=== PATIENT | male | born 1975 | race African-American/Black ===

== ENCOUNTER 2020-02-22 18:06 | Inpatient (IN) ==
[2020-02-22 18:25] LABS: Basophils # 0.1 10*3/uL (0.0-0.2); Basophils % 0.9 % (0.0-0.8); Eosinophils # 0.4 10*3/uL (0.0-0.87); Eosinophils % 3.5 % (0.00-10.9); Hematocrit 41.5 VOL% (42.0-52.0); Hemoglobin 14.3 GM/DL (14.0-18.0); Immature Granulocytes % 0.3 %; Immature Granulocytes Absolute 0.03 #; Lymphocytes % 29.5 % (21.2-54.2); Mean Corpuscular HGB Conc 34.5 GM/DL (32-36); Mean Corpuscular Volume 87.6 FL (87-102); Mean Platelet Volume 9.6 FL (9.6-12.0); Monocytes % 6.8 % (1.7-12.7); Platelet Count 338 T/CUMM (130-400); Red Blood Count 4.74 MC/CUMM (3.8-5.5); Red Cell Distribution Width 13.6 % (9.3-17.3); White Blood Count 10.1 T/CUMM (4-12)
[2020-02-22 18:51] LABS: Alanine Aminotransferase 21 U/L (16-61); Albumin 3.9 G/DL (3.4-5.0); Alkaline Phosphatase 99 U/L (45-117); Aspartate Amino Transferase 21 U/L (0-37); Bilirubin,Total < 0.39 MG/DL (0.2-1.0); Blood Urea Nitrogen 14 MG/DL (7-18); Calcium 9.9 MG/DL (8.5-10.1); Estimated Glom Filtration Rate 108 ML/MIN; Glucose 108 MG/DL (74-106); Osmolality,Calculated 280.4 MOS/KG (273-304); Total Protein 7.6 G/DL (6.4-8.3)
[2020-02-22] MEDS ORDERED: DEXTROSE 50% 25 GM/50 ML VIAL IV PRN (19:42)
[2020-02-22] MEDS ORDERED: GLUCAGON 1 MG VIAL IM PRN (19:42)
[2020-02-22] MEDS ORDERED: hydrALAZINE 20 MG/1 ML VIAL IV PRN (20:27)
[2020-02-22] MEDS: PANTOPRAZOLE 40 MG VIAL IV SCH (23:00)
[2020-02-23 06:19] LABS: Calcium 9.2 MG/DL (8.5-10.1); Osmolality,Calculated 276.5 MOS/KG (273-304); Risk Ratio 3.67; VLDL CHOLESTEROL 33.6 MG/DL
[2020-02-23 06:56] LABS: Basophils # 0.1 10*3/uL (0.0-0.2); Basophils % 0.9 % (0.0-0.8); Eosinophils # 0.4 10*3/uL (0.0-0.87); Eosinophils % 4.4 % (0.00-10.9); Hemoglobin 13.2 GM/DL (14.0-18.0); Immature Granulocytes % 0.3 %; Immature Granulocytes Absolute 0.02 #; Lymphocytes # 2.7 10*3/uL (1.4-4.0); Lymphocytes % 33.3 % (21.2-54.2); Mean Corpuscular Volume 89.5 FL (87-102); Mean Platelet Volume 10.4 FL (9.6-12.0); Monocytes % 8.9 % (1.7-12.7); Neutrophils % 52.2 % (38.7-73.9); Platelet Count 345 T/CUMM (130-400); Red Blood Count 4.47 MC/CUMM (3.8-5.5)
[2020-02-23] MEDS: ASPIRIN EC 81 MG TABLET PO SCH (08:59)
[2020-02-23] MEDS: LISINOPRIL/HCTZ 20-25 MG TABLET PO SCH (08:59)
[2020-02-23] MEDS: amLODIPine 10 MG TABLET PO SCH (08:59)
[2020-02-23] MEDS: ZINC GLUCONATE 50 MG TABLET PO SCH (08:59)
[2020-02-23] MEDS: PANTOPRAZOLE 40 MG VIAL IV SCH ×2 (09:02→20:13)
[2020-02-23] MEDS: ENOXAPARIN 40 MG/0.4 ML SYRINGE SUBCUT SCH (09:04)
[2020-02-23] MEDS ORDERED: DIAZEPAM 5 MG TABLET PO ONE (10:34)
[2020-02-23] MEDS ORDERED: diphenhydrAMINE CAP 25 MG CAPSULE PO ONE (10:34)
[2020-02-23] MEDS ORDERED: fentaNYL 100 MCG/2 ML VIAL ONE (10:59)
[2020-02-23] MEDS ORDERED: MIDAZOLAM 2 MG/2 ML VIAL ONE (10:59)
[2020-02-23] MEDS ORDERED: VERAPAMIL 5 MG/2 ML VIAL ONE (10:59)
[2020-02-23] MEDS ORDERED: SODIUM CHLORIDE 0.45% 1,000 ML IV SCH ×2 (11:00→12:30)
[2020-02-23] MEDS ORDERED: LIDOCAINE 1% 20 ML VIAL ONE (11:01)
[2020-02-23] MEDS ORDERED: ENOXAPARIN 60 MG/0.6 ML SYRINGE ONE (11:33)
[2020-02-23] MEDS ORDERED: AMIODARONE 150 MG/3 ML VIAL ONE (11:41)
[2020-02-23] MEDS ORDERED: METOPROLOL TARTRATE 5 MG/5 ML VIAL IV ONE (11:41)
[2020-02-23] MEDS ORDERED: TIROFIBAN 5,000 MCG/100 ML PREMIX IV ONE (11:45)
[2020-02-23] MEDS ORDERED: TIROFIBAN 5,000 MCG/100 ML PREMIX IV SCH (11:51)
[2020-02-23] MEDS ORDERED: TICAGRELOR 90 MG TABLET ONE (12:10)
[2020-02-23] MEDS ORDERED: ONDANSETRON 4 MG/2 ML VIAL IV PRN (12:18)
[2020-02-23] MEDS ORDERED: ZALEPLON 5 MG CAPSULE PO PRN (12:18)
[2020-02-23] MEDS ORDERED: NITROGLYCERIN SL 0.4 MG TABLET SL PRN (12:18)
[2020-02-23] MEDS: TICAGRELOR 90 MG TABLET PO SCH (20:12)
[2020-02-23] MEDS ORDERED: ROSUVASTATIN 20 MG TABLET PO SCH (21:00)
[2020-02-24 05:39] LABS: Basophils # 0.1 10*3/uL (0.0-0.2); Basophils % 0.8 % (0.0-0.8); Eosinophils # 0.4 10*3/uL (0.0-0.87); Eosinophils % 4.1 % (0.00-10.9); Hematocrit 39.1 VOL% (42.0-52.0); Hemoglobin 12.7 GM/DL (14.0-18.0); Immature Granulocytes % 0.4 %; Immature Granulocytes Absolute 0.04 #; Lymphocytes # 2.4 10*3/uL (1.4-4.0); Lymphocytes % 24.9 % (21.2-54.2); Mean Corpuscular HGB Conc 32.5 GM/DL (32-36); Mean Corpuscular Volume 90.5 FL (87-102); Mean Platelet Volume 9.5 FL (9.6-12.0); Neutrophils % 60.8 % (38.7-73.9); Platelet Count 353 T/CUMM (130-400); Red Blood Count 4.32 MC/CUMM (3.8-5.5); Red Cell Distribution Width 13.7 % (9.3-17.3); White Blood Count 9.6 T/CUMM (4-12)
[2020-02-24 06:05] LABS: Blood Urea Nitrogen 16 MG/DL (7-18); Calcium 9.2 MG/DL (8.5-10.1); Estimated Glom Filtration Rate 120 ML/MIN; Glucose 99 MG/DL (74-106); Osmolality,Calculated 279.4 MOS/KG (273-304)
[2020-02-24 06:07] LABS: Troponin I 0.103 NG/ML (0.00-0.045)
[2020-02-24 08:16] VITALS: BP 115/80
[2020-02-24] MEDS: ZINC GLUCONATE 50 MG TABLET PO SCH (08:33)
[2020-02-24] MEDS: TICAGRELOR 90 MG TABLET PO SCH (08:33)
[2020-02-24] MEDS: amLODIPine 10 MG TABLET PO SCH (08:33)
[2020-02-24] MEDS: LISINOPRIL/HCTZ 20-25 MG TABLET PO SCH (08:33)
[2020-02-24] MEDS: ASPIRIN EC 81 MG TABLET PO SCH (08:33)
[2020-02-24] MEDS: ENOXAPARIN 40 MG/0.4 ML SYRINGE SUBCUT SCH (08:34)
[2020-02-24] MEDS: PANTOPRAZOLE 40 MG VIAL IV SCH (08:34)
== END 2020-02-24 10:06 | disposition home or self-care (01) | DRG 247 ==
LOC: N.ED 18:06 → INTOOBSV 19:42 → N.EDINP 19:42 → N.TELEN 20:54
PROVIDERS: ADMIT Internal Medicine; ATTEND Internal Medicine
PROC: CLCCHCL (ICD-10-PCS; 2020-02-23 11:45)